=== PATIENT | female | born 1970 | race Caucasian/White ===

== ENCOUNTER 2017-04-20 11:54 | Emergency (ER) | payer MEDICARE ==
--- NOTE | ~2017-04-20 | ER ---
[facility] 47 Y [address] ROOM: [place] [address] LOCATION: [facility] ADMIT DATE: 04/20/2017 ER/Outpatient Report DISCHARGE DATE: 04/20/2017 FAMILY PHYSICIAN: PHYSICIAN, NO ATTENDING PHYSICIAN: Eduar Cabrera Time of Evaluation: 1205 hours. CHIEF COMPLAINT: Sinus congestion, sore throat. HISTORY OF PRESENT ILLNESS: The patient is a 47-year-old female, who says over the last 4 days, she has had sinus congestion and sore throat. She said she has been having some purulent postnasal drainage. She denies any fevers, chills, or cough. ALLERGIES: NO MEDICINAL ALLERGIES. HOME MEDICATIONS: Include just [id number] Mucinex. MEDICAL HISTORY: She has had some labile hypertension in the past, has been hospitalized with pneumonia, bronchitis. Denies asthma. SURGERIES: Include hysterectomy. SOCIAL HISTORY: Denies tobacco or alcohol use. REVIEW OF SYSTEMS: GENERAL: Denies fever or chills. HEENT: Includes nasal congestion, sore throat, postnasal drainage. NECK: Denied any neck or swollen cervical glands. RESPIRATORY: No cough or wheezing. SKIN: No recent rash. OBJECTIVE FINDINGS: VITAL SIGNS: Blood pressure initially was 170/101, temp 97, respiratory rate 20, pulse 86, O2 sats 99%. GENERAL APPEARANCE: Alert, did not appear to be in severe distress. HEENT: Ears: Both TMs intact. Normal landmarks. Nose: Nasal mucosa appeared non-swollen. There is no purulent discharge present. Throat: No PATIENT'S NAME: RENEE GOOD [facility] AGE: 47 Y [address] ROOM: [place] [address] LOCATION: [facility] ADMIT DATE: 04/20/2017 ER/Outpatient Report DISCHARGE DATE: 04/20/2017 FAMILY PHYSICIAN: PHYSICIAN, NO ATTENDING PHYSICIAN: Eduar Cabrera significant redness. No exudate. NECK: No cervical adenopathy or tenderness to palpation. LUNGS: Sound clear. HEART: No murmurs or gallop. ASSESSMENT: Sinusitis, pharyngitis. PLAN: Amoxil 500 t.i.d. for 10 days. Recommend saline nasal wash. Continue her Mucinex, throat lozenges [id number] as needed. Take antibiotic until gone. Follow up with primary care if it does not improve. SOHA HEDRICK FOR DO CHRISSY ADLER/shabnam /[id number] d: 04/20/171946 t: 04/25/17 1212, OUTPATIENT REPORT
== END 2017-04-20 12:15 | disposition disaster alternative care site (69) ==
LOC: GMED 11:54
DX: J32.9 Chronic sinusitis, unspecified (principal); J02.9 Acute pharyngitis, unspecified; Z79.899 Other long term (current) drug therapy; Z87.01 Personal history of pneumonia (recurrent); Z90.710 Acquired absence of both cervix and uterus

== ENCOUNTER 2017-05-31 04:53 | Emergency (ER) | payer MEDICARE ==
--- NOTE | ~2017-05-31 | ER ---
PATIENT'S NAME: RENEE GOOD [facility] AGE: 47 Y [address] ROOM: [place] [address] LOCATION: [facility] ADMIT DATE: 05/31/2017 ER/Outpatient Report DISCHARGE DATE: 05/31/2017 FAMILY PHYSICIAN: PHYSICIAN, NO ATTENDING PHYSICIAN: Jeannette Hernandez CHIEF COMPLAINT: Chest tightness. HISTORY OF PRESENT ILLNESS: I took hand-off on this patient from Dr. Hernandez at 0600 hours. The patient had just arrived, and her initial workup was initiated. The patient was describing some chest tightness with some wheezing, was given Ativan and some aspirin, and was feeling much better on my evaluation. In fact, she has no further symptoms. Her initial CK-MB was elevated at 5.8, and on repeat, it was downtrending. The troponin remains not elevated. The repeat EKG is unchanged with T-wave inversions, but no ST-segment changes. Given the timeframe, the downtrending enzymes, the lack of symptoms, and the only risk factor of family history, I think it is safe for discharge for this patient. I strongly encouraged her to establish care with one of the local clinics, and she was given business cards for same. All questions were answered, and the patient was discharged asymptomatic from the emergency department with improvement. MD LUNA LINO/shabnam /[id number] d: 05/31/17 1245 t: 06/10/17 0622, OUTPATIENT REPORT
--- NOTE | ~2017-05-31 | ER ---
PATIENT'S NAME: RENEE GOOD [facility] AGE: 47 Y [address] ROOM: [place] [address] LOCATION: [facility] ADMIT DATE: 05/31/2017 ER/Outpatient Report DISCHARGE DATE: FAMILY PHYSICIAN: PHYSICIAN, NO ATTENDING PHYSICIAN: Jeannette Hernandez HISTORY OF PRESENT ILLNESS: A 47-year-old female who presents today with chief complaint of "just not feeling right." She reports that she woke up at 4:30 a.m. on 05/31/2017 with sort of a chest tightness. She felt like she could not take a deep breath. She felt like it was catching in her chest. She denies any chest pain or chest pressure. It is not indigestion feeling. It is not burning. She has no pain. She has not had anything like this before. She denies any nausea, vomiting, diaphoresis, arm pain, or any other complaints at this time. PAST MEDICAL HISTORY: Includes being bipolar, anxiety and depression for which she takes no medications; hypertension for which she takes no medications. PAST SURGICAL HISTORY: Includes hysterectomy. SOCIAL HISTORY: In the past, she was a smoker, but denies any drugs or alcohol use. She says she has not smoked in 2 years. FAMILY HISTORY: Positive for heart disease in her mom and her grandma. ALLERGIES: NONE. MEDICATIONS: Recently was on cephalexin for her dry cough and laryngitis for the last 2 weeks, just finished it a couple of days ago. Otherwise, no other medications. REVIEW OF SYSTEMS: Reviewed by me and negative with the exception of those discussed in HPI. PHYSICAL EXAMINATION: VITAL SIGNS: Height is 5 feet 7 inches; weight is 96.8 kilos; blood pressure is 179/112; heart rate 90; respiratory rate 16; temperature is 96, tympanic; sats are 99% on room air. GENERAL: The patient appears mildly anxious. She walked into the ER. She PATIENT'S NAME: RENEE GOOD [facility] AGE: 47 Y [address] ROOM: [place] [address] LOCATION: [facility] ADMIT DATE: 05/31/2017 ER/Outpatient Report DISCHARGE DATE: FAMILY PHYSICIAN: PHYSICIAN, NO ATTENDING PHYSICIAN: Jeannette Hernandez does not appear toxic. She is not pale or diaphoretic. She says that she has a hard time explaining her symptoms. She "does not feel right." HEENT: Pupils are equal and reactive to light. Her heart rate is regular rate and rhythm. She is hypertensive at this time to 179/112. HEART: Her heart sounds are regular. She is not tachycardic. LUNGS: Her lung sounds are clear. She is saturating 99% on room air. Bilateral breath sounds are clear. She has no wheezing, rales, or rhonchi. Good air movement bilaterally. No chest wall tenderness. ABDOMEN: Soft, nontender, nondistended. No guarding or rebound. EXTREMITIES: She has no edema. NEURO: She has no pronator drift. Strength is bilateral upper extremities are 5/5. Lower extremities are 5/5. Cranial nerves 2 through 12 are intact. Intact sensation in bilateral upper and lower extremities. PSYCH: The patient has a normal affect, normal judgment. She does appear anxious and says that her mom does have breast cancer, and she has other things going on in her mind, but says that she has never had these symptoms before or taking anything for anxiety in the past. EMERGENCY ROOM COURSE: An EKG was done, it is sinus rhythm without any ectopy. She has some biphasic T-waves in the V5, V6, and some inverted T-waves in I and aVL, flattened T- waves in V3, V4, otherwise unremarkable. No ST elevations, no Q-waves. We also gave her Ativan 0.5 mg and 4 baby aspirins as well. Given her hypertension at this time, we will monitor that, but we will do a cardiac workup. We sent for CBC, CMP, and a troponin. We will await these results. This was signed out at change of shift to Dr. Mchugh. ASSESSMENT: Chest tightness. MD EDUARDO MODI/shabnam /[id number] d: 05/31/17 0615 t: 06/01/17 0406, OUTPATIENT REPORT
[2017-05-31 05:58] LABS: BASOPHIL # 0.1 K/uL (0.0-0.2); BASOPHIL % 1.2 %; EOSINOPHIL # 0.3 K/uL (0.0-0.5); EOSINOPHIL % 4.4 %; HEMATOCRIT 37.3 % (33.0-46.0); HEMOGLOBIN 12.3 g/dL (10.0-15.0); IMMATURE GRANULOCYTE % 0.3 %; LYMPHOCYTE # 2.9 K/uL (0.8-4.0); LYMPHOCYTE % 39.2 %; MCH 30.1 pg (27.0-34.0); MCV 91.4 fl (83.0-98.0); MONOCYTE # 0.6 K/uL (0.0-1.0); MONOCYTE % 7.8 %; MPV 9.9 fl (9.4-12.4); NEUTROPHIL # (ANC) 3.5 K/uL (1.8-7.8); NEUTROPHIL % 47.1 %; NRBC % 0 /100WBC (0-0.00); PLATELET COUNT 308 K/uL (150-450); RBC 4.08 M/uL (3.50-5.50); RDW-CV 13.8 % (11.9-14.6); WBC 7.4 K/uL (4.0-11.0)
[2017-05-31 06:22] LABS: ALBUMIN 3.5 gm/dL (3.5-5.0); ALK PHOS 89 IU/L (33-138); ALT 103 IU/L (12-78); ANION GAP 10.4 (10.0-19.0); AST 108 IU/L (10-40); BLOOD UREA NITROGEN 15 mg/dL (6-24); CALCIUM 8.5 mg/dL (8.5-10.5); CHLORIDE 109 mMol/L (96-110); CO2 25 mMol/L (22-32); CREATININE 0.8 mg/dL (0.5-1.1); POTASSIUM 3.4 mMol/L (3.7-5.1); SODIUM 141 mMol/L (135-145); TOTAL BILIRUBIN 0.3 mg/dL (0.0-1.5); TOTAL PROTEIN 7.2 g/dL (6.0-8.4)
[2017-05-31 08:23] LABS: CPK 189 IU/L (21-215)
== END 2017-05-31 08:51 | disposition disaster alternative care site (69) ==
LOC: GMED 04:53
PROVIDERS: Emergency Medicine
DX: R07.89 Other chest pain (principal); R06.2 Wheezing; I10 Essential (primary) hypertension; F41.9 Anxiety disorder, unspecified; F32.9 Major depressive disorder, single episode, unspecified; F31.9 Bipolar disorder, unspecified; Z90.710 Acquired absence of both cervix and uterus; Z87.891 Personal history of nicotine dependence; Z79.2 Long term (current) use of antibiotics

== ENCOUNTER 2017-06-06 00:44 | Emergency (ER) | payer MEDICARE ==
--- NOTE | ~2017-06-06 | ER ---
[facility] 47 [facility] [address] ROOM: [place] [address] LOCATION: [facility] ADMIT DATE: 06/06/2017 ER/Outpatient Report DISCHARGE DATE: 06/06/2017 FAMILY PHYSICIAN: PHYSICIAN, NO ATTENDING PHYSICIAN: Sin Oquendo Admission date and time documented in the medical record. I saw the patient at 0055 hours. CHIEF COMPLAINT: Difficulty breathing, chest tightness. HISTORY OF PRESENT ILLNESS: This patient is a 47-year-old female who has been having some problems with difficulty breathing off and on for the past 2 to 3 weeks. Tonight, she woke up from sleep gasping for air, feeling short of breath, and chest tightness. Dry nonproductive cough. No fever, chills, or sweats. No abdominal pain, nausea, vomiting, diarrhea. No urinary frequency, urgency, or dysuria. No fall or trauma. No recent fever, chills, sweats. No lightheadedness, dizziness, syncope, or near syncope. No headache; eyes, ears, nose, throat, neck, or spine pain. No skin eruptions or rash. No joint or muscle problems. Does have a history of anxiety and depression with bipolar disorder. No neuro changes or endocrine problems. HOME MEDICATIONS: See attached medication list. ALLERGIES: NONE. SOCIAL HISTORY: Nonsmoker, nondrinker. SIGNIFICANT PAST MEDICAL HISTORY: Bipolar disorder, anxiety, depression, hypertension, remote tobacco abuse, pneumonia. OPERATIONS: Hysterectomy. REVIEW OF SYSTEMS: All systems reviewed by me and are negative with the exception of those discussed in the history of present illness. PHYSICAL EXAMINATION: PATIENT'S NAME: RENEE GOOD [facility] AGE: 47 Y [address] ROOM: [place] [address] LOCATION: [facility] ADMIT DATE: 06/06/2017 ER/Outpatient Report DISCHARGE DATE: 06/06/2017 FAMILY PHYSICIAN: PHYSICIAN, NO ATTENDING PHYSICIAN: Sin Oquendo VITAL SIGNS: Temperature 95.9 tympanic, pulse 102, respirations 16, blood pressure 181/106, and O2 saturation on room air is 97%. HEAD: Normocephalic. EYES, EARS, NOSE, THROAT: Clear. Mucous membranes moist. NECK: Negative. LUNGS: Clear. Good air flow. No rales, rhonchi, or wheezes. HEART: Regular. Pulses are palpable. ABDOMEN: Soft. Some kind of generalized tenderness. No true guarding or rigidity. No rebound tenderness. Active bowel tones. No CVA tenderness. EXTREMITIES: Intact. NEUROVASCULAR: Intact. SKIN: Clear. LABORATORY DATA: CMS was normal except for a low calcium of 8.3, elevated AST of 104, ALT of 125. CPK was 175, CK-MB was 5.4. Troponin was less than 0.04. CRP was 0.42. White count was 8700; 55 segs, 34 lymphs, 6 monos, 4 eos, 1 baso. Hemoglobin is 12.6, hematocrit 38.2, platelet count is 304,000. ProTime was 10.8 with an INR 1.03. D-dimer was 0.66. IMAGING: Chest x-ray showed some questionable increased vascular congestion, cardiomegaly. No acute infiltrate. We will review x-ray with radiologist. Plain film, flat plate of the abdomen, and upright showed increased stool pattern. No other abnormalities. No obstruction. CT scan of the chest with PE protocol showed no evidence of pulmonary embolism. Did have some interstitial edema, mild cardiomegaly, enlarged body of the prostate, cholelithiasis. No free air or free fluid. CT scan was read by Radiology. See dictated and transcribed report. Radiology suggested MRI of the pancreas because of enlarged body of the pancreas. There also was a low-density lesion. IMPRESSION: 1. Interstitial pulmonary edema with some mild cardiomegaly. This could be the source of her difficulty breathing at times. No evidence of infiltrate, lung nodules. 2. Cholelithiasis. 3. Enlarged body of the pancreas with possible low-density lesion. MRI recommended. 4. Bipolar disorder. 5. Anxiety and depression. 6. Hypertension. 7. Remote tobacco abuse. PATIENT'S NAME: RENEE GOOD [facility] AGE: 47 Y [address] ROOM: [place], [place] [address] LOCATION: ED ADMIT DATE: 06/06/2017 ER/Outpatient Report DISCHARGE DATE: 06/06/2017 FAMILY PHYSICIAN: PHYSICIAN, NO ATTENDING PHYSICIAN: Sin Oquendo PLAN: The patient was discharged home with observation. Activity as tolerated. Continue present home medications and care. Fluids and diet as tolerated. Zaroxolyn 5 mg once a day for 5 days. We will schedule for an MRI scan of the pancreas. Follow up with personal physician in 5 to 7 days. MD KAROLINA GRANADOS/modl /[id number] d: 06/06/17 0349 t: 06/06/17 1810, OUTPATIENT REPORT
[2017-06-06 01:34] LABS: BASOPHIL # 0.1 K/uL (0.0-0.2); BASOPHIL % 1.1 %; EOSINOPHIL # 0.4 K/uL (0.0-0.5); HEMATOCRIT 38.2 % (33.0-46.0); HEMOGLOBIN 12.6 g/dL (10.0-15.0); IMMATURE GRANULOCYTE % 0.1 %; LYMPHOCYTE # 2.9 K/uL (0.8-4.0); LYMPHOCYTE % 33.6 %; MCH 30.4 pg (27.0-34.0); MONOCYTE # 0.6 K/uL (0.0-1.0); MONOCYTE % 6.4 %; NEUTROPHIL # (ANC) 4.8 K/uL (1.8-7.8); NEUTROPHIL % 54.8 %; NRBC % 0 /100WBC (0-0.00); PLATELET COUNT 304 K/uL (150-450); RBC 4.15 M/uL (3.50-5.50); RDW-CV 13.8 % (11.9-14.6); WBC 8.7 K/uL (4.0-11.0)
[2017-06-06 01:44] LABS: INR - (THERAPEUTIC) 1.03 (0.92-1.07); PROTIME 10.8 SECONDS (9.8-11.4)
[2017-06-06 01:53] LABS: ALBUMIN 3.5 gm/dL (3.5-5.0); ALK PHOS 103 IU/L (33-138); ALT 125 IU/L (12-78); ANION GAP 10.9 (10.0-19.0); AST 104 IU/L (10-40); BLOOD UREA NITROGEN 17 mg/dL (6-24); CALCIUM 8.3 mg/dL (8.5-10.5); CHLORIDE 108 mMol/L (96-110); CO2 24 mMol/L (22-32); CPK 175 IU/L (21-215); CREATININE 0.7 mg/dL (0.5-1.1); POTASSIUM 3.9 mMol/L (3.7-5.1); SODIUM 139 mMol/L (135-145); TOTAL BILIRUBIN 0.3 mg/dL (0.0-1.5); TOTAL PROTEIN 7.3 g/dL (6.0-8.4)
== END 2017-06-06 03:11 | disposition disaster alternative care site (69) ==
LOC: GMED 00:44
PROVIDERS: Emergency Medicine
DX: J81.1 Chronic pulmonary edema (principal); K80.20 Calculus of gallbladder without cholecystitis without obstruction; F31.9 Bipolar disorder, unspecified; F41.9 Anxiety disorder, unspecified; F32.9 Major depressive disorder, single episode, unspecified; I10 Essential (primary) hypertension; K86.89 Other specified diseases of pancreas
CPT/HCPCS: J7030; Q9967

== ENCOUNTER → 2017-06-13 | Outpatient (CLI) | payer MEDICARE ==
[~2017-06-13] MED LIST: ALDACTONE25 MG PO; COREG6.25 MG PO; ENTRESTO 24 MG1 EACH PO; K-TAB ER20 MEQ PO; LASIX20 MG PO; LISINOPRIL-HCT1 EACH PO
== END | disposition disaster alternative care site (69) ==
LOC: GRAD 06-06 08:37
DX: K86.89 Other specified diseases of pancreas (principal); K86.2 Cyst of pancreas

== ENCOUNTER 2017-06-19 12:00 | Inpatient (IN) | payer MEDICARE ==
[~2017-06-19] VITALS: Ht 152.4 cm; Wt 94.2 kg
--- NOTE | ~2017-06-19 | HP ---
PATIENT'S NAME: RENEE HURT [facility] AGE: 47 Y [address] ROOM: [facility] [place] [address] LOCATION: [facility] ADMIT DATE: 06/19/2017 History & Physical DISCHARGE DATE: FAMILY PHYSICIAN: Syeda Miller PA-C ATTENDING PHYSICIAN: Tc De La Cruz DATE OF SERVICE: CHIEF COMPLAINT: Congestive heart failure. HISTORY OF PRESENT ILLNESS: Kim Hurt is a 47-year-old female, who is a relatively new patient to our clinic. Her first and only clinic visit was on June 11. She had 3 relatively recent visits to the ER; the initial one was actually on April 25, 2017, when she presented with sinus congestion and a sore throat, was diagnosed with sinusitis and pharyngitis, and was treated with amoxicillin 500 t.i.d. for 10 days. They recommended saline nasal rinses and Mucinex and sore throat lozenges. She was then seen on June 01, 2017, of just not feeling right. She kind of had difficulty where she would just kind of have catching her breath. She said she just had difficulty taking a deep breath; it really was not so much that she was short of breath, but it worried her. She was evaluated by Dr. Jeannette Hernandez. Her EKG was normal. She was given some Ativan and they thought that it was just more of an anxiety-type syndrome. Dr. Mchugh actually took over. There were some slightly elevated enzymes, but they trended down on 2 checks, and her symptoms seemed to be better and all she had was this difficulty catching her breath, so she was actually dismissed. Her final ER visit was on the where she was seen by Dr. Oquendo with the same symptoms. He went ahead and did more of a workup at that time including a CMS that showed a low calcium of 8.3, elevated AST of 104 and ALT of 125, CPK was 175, CK-MB was 5.4, and troponin was less than 0.04. CRP was 0.42. CBC was normal. Hemoglobin normal. D-dimer borderline. She had a CT PE protocol, which showed no evidence of pulmonary embolism, but did show interstitial edema, mild cardiomegaly and large body of the pancreas, and cholelithiasis. He started the patient on some Zaroxolyn to diurese her and recommended followup with her personal physician in 5 to 7 days. She then came and saw Syeda Miller, one of our PAs at the [facility]. She reviewed all the data and got the patient scheduled for the MRI of her pancreas. This was done and did show an ill-defined mid-pancreatic mass measuring 35 x 55 mm with some central cystic changes. Differential diagnosis includes mucinous cystic carcinoma versus neuroendocrine tumor versus unusual ductal adenocarcinoma versus serous carcinoma. A biopsy of course is recommended. She actually set the patient up for an evaluation at [facility] for biopsy of this mass and further evaluation. Because of the cardiomegaly and the congestion, she set the patient up for an echocardiogram, which was read PATIENT'S NAME: RENEE HURT [facility] AGE: 47 Y [address] ROOM: [id number] [place] [id number] [facility] ADMIT DATE: 06/19/2017 History & Physical DISCHARGE DATE: FAMILY PHYSICIAN: Syeda MillerC ATTENDING PHYSICIAN: Tc De La Cruz today by Dr. Eugene. It showed the patient to have a significant dilated cardiomyopathy with EF of 25% to 30%, left ventricle was moderately dilated, mild concentric LVH, mild mitral regurg, mild thickening of the mitral valve leaflets, grade 2 pseudonormal diastolic dysfunction, no evidence of pleural effusion. Dr. Eugene thought it best to admit the patient and obviously with the workup, it is to hopefully rule out an ischemic cardiomyopathy. There is a good chance with everything that is going on that this might be just more of a viral cardiomyopathy. He asked us to consult for medical management, and he is going to take care of the cardiology aspects. PAST MEDICAL HISTORY: ALLERGIES: IODINE DYE AND SEASONAL ALLERGIES. PREVIOUS SURGERIES: Just the history of a hysterectomy, which was due to bleeding issues. CHRONIC HEALTH PROBLEMS: She does have a history of hypertension. FAMILY HISTORY: There is a maternal grandmother with cardiovascular disease, diabetes in a maternal grandmother. Mom has a recent diagnosis of breast cancer and is undergoing treatment. Dad has a history of prostate cancer, and the maternal grandmother had hypertensive heart disease also. SOCIAL HISTORY: The patient works for the [employer] since October of 2016. She is a nonsmoker, nondrinker, and denies drug use. REVIEW OF SYSTEMS: GENERAL: She denies any problems with weight loss. HEENT: Negative. LUNGS: Negative other than this catching her breath, she still does not complain of shortness of breath. CHEST: No pains, pressure, or tightness. GI: No nauseousness, vomiting, loose stools, bowel changes, abdominal pain, etc. : Negative. INTEGUMENT: Negative. MUSCULOSKELETAL: Negative other than swelling of her lower extremities. PSYCHIATRIC: She does have a remote history of bipolar disorder, but is off medications for quite some time and states she is really doing well. PATIENT'S NAME: RENEE HURT [facility] AGE: 47 Y [address] ROOM: [address] [address] [facility] ADMIT DATE: 06/19/2017 History & Physical DISCHARGE DATE: FAMILY PHYSICIAN: Syeda Miller PA-C ATTENDING PHYSICIAN: Tc De La Cruz CURRENT MEDICATIONS: Include, 1. Lisinopril, HCTZ along with aspirin. 2. She had some Ativan for anxiety as needed. PHYSICAL EXAMINATION: GENERAL: Shows an alert female, who is resting comfortably in bed. I did wake her up to visit her. HEENT: Normal. NECK: Supple. No adenopathy. LUNGS: Clear. HEART: Regular rate and rhythm. ABDOMEN: Benign. No tenderness. EXTREMITIES: Just show trace to 1+ edema. LABORATORY DATA: CPK is 117, troponin I is less than 0.040, and proBNP is 2212. White count is 6.2, hemoglobin 14.6, hematocrit 44.5, platelet count is 291. Glucose 93, BUN 10, creatinine 0.8, sodium 141, potassium 4, chloride 105, CO2 of 31, calcium 9.2, total protein 7.8, albumin 3.6, ALT is 29, AST 31, alkaline phosphatase 84, total bilirubin 0.3, anion gap 9, globulin 4.2, pro-time 10.6, INR 1.01, PTT of 30, eGFR is 87, CK-MB 29, TSH is 1.550. Differential showed 53% neutrophils, 35.2% lymphocytes. ASSESSMENT: 1. Dilated cardiomyopathy with acute systolic heart failure and diastolic dysfunction with an ejection fraction of 25% to 30% percent. 2. Hypertension. 3. Pancreatic mass. 4. Status post hysterectomy. 5. Remote history of bipolar affective disorder. 6. Cholelithiasis noted on MRI. 7. History of hypokalemia, resolved. PLAN: Dr. Eugene has admitted the patient and is planning on doing a cath tomorrow probably to rule out an ischemic cardiomyopathy versus nonischemic. He has discontinued her lisinopril, placed her on Coreg, Aldactone, and Entresto, which I agree with all of that. He also started her on Lovenox. We are going to monitor her lab work. Plan on a cath tomorrow. She has an upcoming appointment with [facility]. We will have to see if we have to reschedule that depending on her workup. I will continue to follow along. PATIENT'S NAME: RENEE HURT [facility] AGE: 47 Y [address] ROOM: [place] [address] [facility] ADMIT DATE: 06/19/2017 History & Physical DISCHARGE DATE: FAMILY PHYSICIAN: Syeda Miller PA-C ATTENDING PHYSICIAN: Tc De La Cruz MD VIJAY MARTINEZ/shabnam /[id number] D: T: HISTORY & PHYSICAL
--- NOTE | ~2017-06-19 | CATH ---
Cardiac Diagnostic Report Demographics Patient Name FLORENTINO Valle Gender Female Date of 1970 Age 47 year(s) Patient Number [id number] Date of Study 06/20/2017 Visit Number [id number] Room Number G6339 [place] [id number] Ht 171.4 cm Wt 93 kg Referring Dorothy Lee Primary Physician Physician Performing Efstratiou Secondary Physician Physician Chaya Lee MD Diagnostic Efstratiou Assisting Physician Physician Chaya Lee MD Interventional Physician Transformer Assembly Supervisor Physician Findings and Conclusions Diagnostic Findings and Conclusion normal coronaries non ischemic cardiomyopathy with EF 20-25% mildly elevated LVEDP normal wedge pressure Diagnostic Recommendations medical therapy Life vest Procedure Description The patient was brought to the diagnostic cardiac catheterization-EP laboratory in the fasting, non-sedated state. Informed consent was obtained in the written and verbal form after the risks and benefits were explained. The patient had no further questions and agreed to proceed. The planned puncture-incision site(s) were shaved and prepped with ChloraPrep and draped in the usual sterile manner. Conscious sedation, supplemental oxygen, and pain control medications were delivered by a registered nurse under physician guidance. Surface ECG rhythm, blood pressure measurement, and pulse oximetry were monitored throughout the procedure. Arterial access. The access site was infiltrated with lidocaine. The vessel was entered with the Seldinger technique. A sheath was advanced into the vessel and used for catheter placement. Venous access. The access site was infiltrated with lidocaine. The vessel was entered with the Seldinger technique. A sheath was advanced into the vessel and used for catheter placement. Selective left coronary angiography. A catheter was advanced into the left coronary vessel ostium under Fluoroscopic guidance. Contrast was injected by hand. Images were obtained in multiple projections. Selective right coronary angiography. A catheter was advanced into the right coronary vessel ostium under fluoroscopic guidance. Contrast was injected by hand. Images were obtained in multiple projections. Left heart catheterization with ventriculography. A catheter was advanced across the aortic valve to the left ventricle under fluoroscopic guidance. Resting hemodynamics were obtained. With the catheter at the left ventricular apex, contrast was injected. Images were obtained in HANSON projections. Post-ventriculography LV pressure was obtained. The catheter was gradually withdrawn into the aorta with continuous pressure recording. Right heart catheterization. A Calumet Suzanne catheter was successfully advanced to the right atrium, right ventricle, pulmonary artery, and pulmonary artery wedge position under fluoroscopic guidance. Resting hemodynamics were obtained. Measurements included pressures, arterial and venous oxygen saturation samples, and cardiac output. The Calumet was removed without difficulty. Arterial artery hemostasis was achieved. The patient was transferred to a regular nursing floor via cart accompanied by a nurse. The patient left the laboratory in stable condition. Diagnostic Cath Status: Urgent Procedure Procedure Type Diagnostic procedure:Ventriculogram:, Left, Angiography:, Right and Left Heart Cath, Coronary Angios Indications: CHF. The procedure was explained in detail to the patient. Risks, complications and alternative treatments were reviewed. Written consent was obtained. Medications Reviewed with Patient prior to Procedure. Angiographic Findings Dominance: Right Cardiac Arteries and Lesion Findings LMCA: Normal (0% Stenosis). LAD: Normal (0% Stenosis). LCx: Normal (0% Stenosis). RCA: Normal (0% Stenosis). Procedure Data Procedure Date Date: 06/20/2017Start: 09:16 AMEnd: 09:55 AM Entry Locations - Retrograde Percutaneous access was performed through the Right Radial artery (Primary location). A 6 Fr sheath was inserted. Hemostasis was successfully obtained using Mechanical Compression. Closure Comments: r band with 15 cc air by Kyaw. - Antegrade Percutaneous access was performed through the Right Brachial vein. A 6 Fr sheath was inserted. Hemostasis was successfully obtained using Manual Compression. Closure Comments: pressure held by Kyaw. Procedure Medications Order and Administration + + +-------+-------+ !Time !Medication !Dosage !Route ! + + +-------+-------+ !06/20/2017 !PAE Radial Cocktail: Heparin 5000 units, ! !I.A. ! !09:20 AM !Nitroglycerin 200mcg, Verapamil 3 mg ! ! ! ! !(ACC_3) ! ! ! + + +-------+-------+ !06/20/2017 !Fentanyl !25 mcg !I.V. ! !09:14 AM ! ! ! ! + + +-------+-------+ Devices Used - A6 Fr. Balloon Wedge Catheterwas used for:Right heart cath. - A6 Fr. BS JR 4 Diag. Catheterwas used for:Right coronary angiography. - A6 Fr. BS JL 3.5 Diag. Catheterwas used for:Left coronary angiography. - A6 Fr. BS Angled Pigtail Diag. Catheterwas used for:Left ventriculography. Contrast Material - Isovue 08539 ml Fluoroscopy Time: Diagnostic: 6:48 minutes. Total: 6:48 minutes. Fluoroscopy Dose: Diagnostic: 795 mGy. Total: 795 mGy. Estimated Blood Loss: 10 ml. Medical History Allergies - Iodine. Risk Factors The patient risk factors include:obesity, family history of premature CAD, last creatinine: 0.8 mg/dl and creatinine clearance: 124.89 ml/min. Admission Data Admission Date: 06/19/2017 Admission Time: 04:26 PM Admit Source: Other Insurance Payors: Medicare. Admission Medications + +------+------+ + + + + !Medication !Dosage!Times !Last !Last !Administered !Comments ! ! ! !Per !Delivery !Delivery ! ! ! ! ! !Day !Date !Time ! ! ! + +------+------+ + + + + !Beta ! ! ! ! ! ! ! !Valeria ! ! ! ! ! ! ! !(any) ! ! ! ! ! ! ! + +------+------+ + + + + Clinical Evaluation Leading to Procedure - There were no CAD presentation symptoms. - There were no anginal symptoms. Anti-anginal medications were prescribed during the past two weeks. The medication is: Beta Blockers. - The patient has been in a state of heart failure within the past two weeks. - The patient's heart failure status was assessed as NYHA Class IV, with CHF symptoms of PERES. - The reason for the patient's electrical laboratory technician visit is evaluation of cardiomyopathy and/or evaluation of left ventricular systolic dysfunction. [facility] Ventriculography Findings non ischemic cardiomyopathy ef 20-25% mildly elevated LVEDP LV function assessed as:Abnormal. Ejection Fraction - Method: Echocardiography. EF%: 25. - 06/20/2017 - Method: LV gram. EF%: 20. Snapshots Hemodynamics Condition: Rest O2 Consumption: Estimated: 197.11Heart Rate: 64 bpm Oxygen Saturation +--------+-----+----+ +----+ + !Location!pCO2 !pO2 !% Saturation !Hgb !O2 Content ! +--------+-----+----+ +----+ + !FA ! ! !90.1 !14.9! ! +--------+-----+----+ +----+ + !PA ! ! !66.3 !14.9! ! +--------+-----+----+ +----+ + !RA ! ! !69.2 !14.9! ! +--------+-----+----+ +----+ + Pressures (mmHg) +-----+ + !Site !Pressure ! +-----+ + !RA !4/1 (1) ! +-----+ + !RV !34/-5 ,0 ! +-----+ + !PCW !10/9 (5) ! +-----+ + !PA !35/0 (20) ! +-----+ + !AO !139/88 (110) ! +-----+ + !LV !147/4 ,14 ! +-----+ + !LV !145/3 ,16 ! +-----+ + !LV !146/7 ,18 ! +-----+ + !LV !148/7 ,21 ! +-----+ + !AO !151/87 (113) ! +-----+ + !LV !146/7 ,20 ! +-----+ + Cardiac Output +------+ + + + !Method!CO (l/min) !CI (l/min/m2) !SV (ml) ! +------+ + + + !Angelita !4.09 !2 !63.44 ! +------+ + + + Valve Gradients and Areas + +--------+--------+--------+---------+ + + !Valve !Peak !Mean !Area !Index !Flow !Source ! + +--------+--------+--------+---------+ + + !Aortic !0 !0 ! ! !763.06 !Angelita ! + +--------+--------+--------+---------+ + + !Aortic !0 !0 ! ! ! ! ! + +--------+--------+--------+---------+ + + Shunts Oxygen Values O2 Capacity 202.64 O2 Consumption 197.11 Flows (l/min) Qs 4.65 Vascular Resistance (dynes x sec x cm-5) + +-----+-----+----+----+---------+-------+ !CO method !TSVR !SVR !TPVR!PVR !TPVR/TSVR!PVR/SVR! + +-----+-----+----+----+---------+-------+ !Angelita !27.53!27.36!4.78!3.51!0.17 !0.13 ! + +-----+-----+----+----+---------+-------+ !Qp or Qs !24.21!24.07! ! ! ! ! + +-----+-----+----+----+---------+-------+ Signatures dtt: Axel Frey dtd: 06/20/17 0916 Physician Self Edit
--- NOTE | ~2017-06-19 | CON ---
PATIENT'S NAME: RENEE GOOD [facility] AGE: 47 Y [address] ROOM: G6339 [place], [place] [address] LOCATION: GPCU ADMIT DATE: 06/19/2017 Consultation DISCHARGE DATE: FAMILY PHYSICIAN: Syeda Miller PA-C ATTENDING PHYSICIAN: Tc De La Cruz HISTORY OF PRESENT ILLNESS: This is a 47-year-old woman who was sent today to the noninvasive Cardiology for an echocardiogram. It was grossly abnormal and nursing coordinator asked me to see the patient as I was the ballet dancer personal lines advisor. The echocardiogram shows dilated cardiomyopathy with ejection fraction 25-30%. No major valvular abnormalities. No regional wall motion abnormalities. Normal right ventricle. History I obtained from the patient is for the past two months or so, she had some problems breathing. She has been in our emergency room three times. The on April 20, she gave a history of congestion and purulent discharge on her throat, so the evaluation was unrevealing and she was sent home on amoxicillin for 10 days. She then presented on 05/31 complaining of waking up gasping for air. She had cardiac enzymes drawn, then released. On June 06, she presented again complaining of waking up with difficulty breathing. Cardiac enzymes, troponin was negative. The D-dimer was mildly elevated. She underwent CT angiogram of the chest with PE protocol. It showed that she had some lung congestion and cardiomegaly. No pulmonary embolus. The pancreas was enlarged, so MR of the pancreas was recommended. She was placed on Zaroxolyn. She was advised to establish a followup with one of the primary care practices [facility]. The MR was done June 13. It showed an ill-defined mass in the body of the pancreas 35 x 55 mm and the differential diagnosis is all different type of pancreatic malignancies. The patient has a followup appointment at [facility] tomorrow. PAST MEDICAL HISTORY: Borderline hypertension, but only recently she was placed on lisinopril hydrochlorothiazide. She has history of anxiety and depression but has never been hospitalized for such and denies any suicidal ideation or acts. She has been hospitalized in the past for pneumonia. PAST SURGICAL HISTORY: Hysterectomy because of menorrhagias. SOCIAL HISTORY: The patient is single. Does not have children. Works for the [employer]. Currently, does not use tobacco or alcohol. There is a remote history of smoking. 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 FAMILY HISTORY: PATIENT'S NAME: RENEE GOOD [facility] AGE: 47 Y [address] ROOM: [place] [address] LOCATION: GPCU ADMIT DATE: 06/19/2017 Consultation DISCHARGE DATE: FAMILY PHYSICIAN: Syeda Miller PA-C ATTENDING PHYSICIAN: Tc De La Cruz Father from metastatic prostate cancer. Her mother is alive. She was recently diagnosed with breast cancer. REVIEW OF SYSTEMS: She gets short of breath when she goes up and down stairs. There is no history of chest pain. No history of syncope. She has had some lower extremity edema over the last few weeks. No weight loss or gain. No hemoptysis. Remaining systems were checked and negative. PHYSICAL EXAMINATION: VITAL SIGNS: She is a pleasant middle-aged woman. She is 5 feet 7-1/2 inches, weight 93 kg, blood pressure 159/95, pulse 87, respirations 18, temperature 97.9. GENERAL: She is alert and oriented. SKIN: Warm and dry. HEAD: Normocephalic, atraumatic. No jaundice. There is mild to moderate jugular venous distention. No carotid bruits. LUNGS: Clear. HEART: Has a borderline S4 gallop. No significant murmur. ABDOMEN: Moderately obese, soft, nontender. EXTREMITIES: Lower extremities, mild peripheral edema. LABORATORY DATA: The electrocardiogram is pending. On one of the descriptions in the emergency room encounters, there were some precordial biphasic T-waves. PLAN: The patient will be admitted. She will need medical therapy, and since she is a fairly young woman, I will use Entresto for the renin-angiotensin system. She took her lisinopril today, so we will wait 36 hours to start that. In the meantime, we will start on carvedilol and Aldactone since she has been hypokalemic. I will plan a right and left heart catheterization in a.m., revascularization as indicated. The patient will be discharged on a LifeVest and she will be monitored closely in the outpatient. Thank you for allowing [facility] to assist in the care of your patient. BHAVANI BOGGS MD PE/shabnam PATIENT'S NAME: RENEE GOOD [facility] AGE: 47 Y [address] ROOM: [address] [address] [facility] ADMIT DATE: 06/19/2017 Consultation DISCHARGE DATE: FAMILY PHYSICIAN: Syeda Miller PA-C ATTENDING PHYSICIAN: Tc De La Cruz /[id number] d: 06/19/172256 t: 06/20/17906, CONSULTATION REPORT
--- NOTE | ~2017-06-19 | CON ---
PATIENT'S NAME: RENEE GOOD [facility] AGE: 47 Y [address] ROOM: [address] [place], [place] [address] LOCATION: GPCU ADMIT DATE: 06/19/2017 Consultation DISCHARGE DATE: FAMILY PHYSICIAN: Syeda Miller PA-C ATTENDING PHYSICIAN: Tc De La Cruz DATE OF CONSULTATION: 06/20/2017 REFERRING PHYSICIAN: Tc De La Cruz MD REASON FOR CONSULTATION: Pancreatic mass. HISTORY OF PRESENT ILLNESS: This is a very pleasant 47-year-old female who recently had been seen in the ER over the past month with 3 sequential visits. The patient states that she has been having difficulty taking a deep breath, though denies any shortness of breath. She was evaluated in the emergency room, subsequently undergoing a chest CT with PE protocol for a slightly elevated D-dimer. Incidentally, the patient was found to have a pancreatic mass. She did then undergo MRI on June 13, 2017. An ill-defined mid pancreatic mass measuring 35 x 55 mm with some central cystic changes was seen. The patient ultimately also underwent an echo on 06/19/2017 as an outpatient. The echo appeared to be significantly abnormal, showing dilated cardiomyopathy with ejection fraction of 25% to 30%, no valvular abnormalities, normal right ventricle, as well as no regional wall motion abnormalities. The patient was then admitted for continued workup. She did undergo left and right heart catheterization this morning that she states as there were no "occlusions," though final report is pending at this time. We were asked to see in consultation for the patient's newly diagnosed pancreatic mass. The patient was seen and examined. She denies any specific symptoms except for inability to take a deep breath. She does have known constipation, which is her "normal." Denies any colt abdominal pain, fever, or chills. She does state that her weight has been stable. Also, denies any family history of pancreatic issues. She did have an upcoming appointment scheduled with [facility] regarding her pancreatic mass evaluation, though this has not been completed at this time. The patient currently denies any acute chest pain, chest pressure, shortness of breath, fever, chills, or night sweats. She does state that her appetite has been slightly diminished over the past 3 weeks as well. PAST MEDICAL HISTORY: Newly diagnosed pancreatic mass, borderline hypertension, history of anxiety and depression, and history of pneumonia. PATIENT'S NAME: RENEE GOOD [facility] AGE: 47 Y [address] ROOM: [address] [place], [place] [address] [facility] ADMIT DATE: 06/19/2017 Consultation DISCHARGE DATE: FAMILY PHYSICIAN: Syeda Miller PA-C ATTENDING PHYSICIAN: Tc De La Cruz PAST SURGICAL HISTORY: Hysterectomy secondary to menorrhagia. Denies any history of upper endoscopy or colonoscopy. Right and left heart catheterization completed today. SOCIAL HISTORY: The patient is single. She does not have any children. She works at the [employer]. Denies any current tobacco or alcohol use. She has a remote history of smoking. She also has a history of methamphetamine use, though states that she has been clean for 2 years except for 2 brief relapses. FAMILY HISTORY: The patient denies any known gastrointestinal diseases or pancreatic diseases. The patient's father did have metastatic prostate cancer. There is also a significant family history of generalized cancers, specifically, lung cancer and ovarian cancer in her aunts and uncles. The patient's mother also had breast cancer. ALLERGIES: NO KNOWN MEDICATION ALLERGIES. CURRENT MEDICATIONS: Please refer to the medication administration record. REVIEW OF SYSTEMS: An all-point review of systems was completed, all were negative except for those identified in the History of Present Illness. PHYSICAL EXAMINATION: GENERAL: A very pleasant 47-year-old female, lying in bed, who appears to be in no acute distress. VITAL SIGNS: Temperature 98.0, pulse is 78, respirations of 14, blood pressure 141/79, and oxygen saturation is 98% on room air. SKIN: Wagner, warm, and dry. No jaundice. HEENT: Head is normocephalic and atraumatic. Pupils are equal, round, and reactive to light. Sclerae are clear, nonicteric. Oral mucosa is pink and moist. No thyromegaly. NECK: Soft and supple. CARDIOVASCULAR: Regular. Normal S1 and S2. RESPIRATORY: Respirations even and unlabored. Lungs are clear to auscultation. ABDOMEN: Soft, round, nontender, and nondistended. Bowel sounds are positive. MUSCULOSKELETAL: No muscle weakness or atrophy. EXTREMITIES: No edema. NEUROLOGIC: Grossly nonfocal. PATIENT'S NAME: RENEE GOOD [facility] AGE: 47 Y [address] ROOM: [facility] [place] [address] [facility] ADMIT DATE: 06/19/2017 Consultation DISCHARGE DATE: FAMILY PHYSICIAN: Syeda Miller PA-C ATTENDING PHYSICIAN: Tc De La Cruz LABORATORY AND DIAGNOSTIC DATA: White blood cell count of 5.6, hemoglobin of 14.9, hematocrit of 45.5, and platelets of 295. Chemistry panel includes a glucose of 98, BUN of 12, creatinine 0.8, sodium 141, potassium of 4.2, chloride of 106, and CO2 of 29. Liver function tests are within normal limits. MRI as above. ASSESSMENT AND PLAN: Again, this is a very pleasant 47-year-old female who was admitted for heart catheterization after being found to have dilated cardiomyopathy. The patient incidentally also was noted to have a pancreatic mass. In review of the MRI report, it appears differentials do include mucinous cystic carcinoma versus neuroendocrine tumor versus ductal adenocarcinoma and serous carcinoma. The patient does have an appointment with [facility] in the upcoming future regarding this. At this time, we will go forth with reviewing the MRI with the radiologist for further recommendations. Patient most likely will need evaluation to be completed with endoscopic ultrasound with pancreatic biopsy in [place]. Cardiology is onboard regarding the cardiomyopathy, as well as the patient is status post heart catheterization as well. Further recommendations to be given after review of MRI. Thank you for this consult. VAL DELRAOSA APRN FOR MD JOY WAHL/shabnam /[id number] d: 06/20/170 t: 06/23/17 1756, CONSULTATION REPORT
[2017-06-19] MEDS ORDERED: K-TAB ER20 MEQ PO (17:23)
[2017-06-19] MEDS ORDERED: LISINOPRIL-HCT1 EACH PO (17:25)
[2017-06-19 19:55] LABS: BASOPHIL # 0.1 K/uL (0.0-0.2); BASOPHIL % 1.1 %; EOSINOPHIL # 0.3 K/uL (0.0-0.5); EOSINOPHIL % 4.2 %; HEMATOCRIT 44.5 % (33.0-46.0); HEMOGLOBIN 14.6 g/dL (10.0-15.0); IMMATURE GRANULOCYTE % 0.2 %; LYMPHOCYTE # 2.2 K/uL (0.8-4.0); LYMPHOCYTE % 35.2 %; MCH 30.2 pg (27.0-34.0); MCHC 32.8 gm/dL (32.0-36.5); MCV 91.9 fl (83.0-98.0); MONOCYTE # 0.4 K/uL (0.0-1.0); MONOCYTE % 6.3 %; MPV 10.6 fl (9.4-12.4); NEUTROPHIL # (ANC) 3.3 K/uL (1.8-7.8); NRBC % 0 /100WBC (0-0.00); PLATELET COUNT 291 K/uL (150-450); RBC 4.84 M/uL (3.50-5.50); WBC 6.2 K/uL (4.0-11.0)
[2017-06-19 20:13] LABS: INR - (THERAPEUTIC) 1.01 (0.92-1.07); PROTIME 10.6 SECONDS (9.8-11.4); PTT 30 SECONDS (25-32)
[2017-06-19 20:17] LABS: ALBUMIN 3.6 gm/dL (3.5-5.0); CALCIUM 9.2 mg/dL (8.5-10.5); CREATININE 0.8 mg/dL (0.5-1.1); TOTAL BILIRUBIN 0.3 mg/dL (0.0-1.5); TOTAL PROTEIN 7.8 g/dL (6.0-8.4)
[2017-06-19 20:23] LABS: CPK 117 IU/L (21-215)
[2017-06-20 00:55] LABS: CPK 97 IU/L (21-215)
[2017-06-20 06:26] LABS: BASOPHIL # 0.1 K/uL (0.0-0.2); BASOPHIL % 1.1 %; EOSINOPHIL # 0.3 K/uL (0.0-0.5); HEMATOCRIT 45.5 % (33.0-46.0); HEMOGLOBIN 14.9 g/dL (10.0-15.0); IMMATURE GRANULOCYTE % 0.2 %; LYMPHOCYTE # 2.3 K/uL (0.8-4.0); LYMPHOCYTE % 40.6 %; MCH 29.9 pg (27.0-34.0); MCHC 32.7 gm/dL (32.0-36.5); MCV 91.4 fl (83.0-98.0); MONOCYTE # 0.4 K/uL (0.0-1.0); MONOCYTE % 6.8 %; MPV 10.3 fl (9.4-12.4); NEUTROPHIL # (ANC) 2.6 K/uL (1.8-7.8); NEUTROPHIL % 46.3 %; NRBC % 0 /100WBC (0-0.00); PLATELET COUNT 295 K/uL (150-450); RBC 4.98 M/uL (3.50-5.50); RDW-CV 13.1 % (11.9-14.6); WBC 5.6 K/uL (4.0-11.0)
[2017-06-20 06:42] LABS: CPK 86 IU/L (21-215)
[2017-06-20 06:55] LABS: ANION GAP 10.2 (10.0-19.0); CREATININE 0.8 mg/dL (0.5-1.1); POTASSIUM 4.2 mMol/L (3.7-5.1)
[2017-06-21] MEDS ORDERED: COREG6.25 MG PO (13:03)
[2017-06-21] MEDS ORDERED: ENTRESTO 24 MG1 EACH PO (13:04)
[2017-06-21] MEDS ORDERED: LASIX20 MG PO (13:04)
[2017-06-21] MEDS ORDERED: ALDACTONE25 MG PO (13:05)
== END 2017-06-21 16:30 | disposition disaster alternative care site (69) | DRG 286 ==
LOC: GPCU 16:26
PROVIDERS: Internal Medicine Cardiovascular Disease; ADMIT Obstetrics & Gynecology Obstetrics
PROC: 4A023N8 Measurement of Cardiac Sampling and Pressure, Bilateral, Percutaneous Approach (ICD-10-PCS; principal; 2017-06-20)
PROC: B216YZZ Fluoroscopy of Right and Left Heart using Other Contrast (ICD-10-PCS; principal; 2017-06-20)
DX: I42.0 Dilated cardiomyopathy (principal); I50.21 Acute systolic (congestive) heart failure; F31.89 Other bipolar disorder; E87.6 Hypokalemia; K80.20 Calculus of gallbladder without cholecystitis without obstruction; I11.0 Hypertensive heart disease with heart failure; Z88.8 Allergy status to other drugs, medicaments and biological substances; E66.9 Obesity, unspecified; Z68.31 Body mass index [BMI] 31.0-31.9, adult; K86.9 Disease of pancreas, unspecified
CPT/HCPCS: C1894; J1200; J1644; J1650; J2920; J3010; J7030

== ENCOUNTER → 2017-06-19 | Outpatient (CLI) | payer MEDICARE ==
--- NOTE | ~2017-06-19 | ECHO ---
Transthoracic Echocardiography Report (TTE) Demographics Patient Name RENEE GOOD Date of Study 06/19/2017 Patient Number [id number] Visit Number [id number] Date of 1970 Room Number Accession Number [id number] Gender Female Age 47 year(s) Referring Syeda Miller Loin Puller Kenan Agee RVT, Physician CONCHA Physician Interpreting Tk Larkin Cardiac Cath Technologist Physician A Supervising Ordering Physician Syeda Miller MD/MLP Nurse Stress Press Shop Supervisor Conclusions Contractility Score Summary Summary Preliminary result given to Dr. Frey and the patient was assessed by Dr. Frey. The estimated left ventricular ejection fraction is 25-30%. The left ventricle is moderately dilated . Mild concentric left ventricular hypertrophy. Mild thickening of the mitral valve leaflets. Mild mitral regurgitation. Procedure Type of Study TTE procedure:2D Echocardiogram. Procedure Date Date: 06/19/2017 Start: 10:06 AM Study Location: Echo Lab Technical Quality: Adequate visualization Indications:Shortness of breath. Appropriate Use Criteria: 8 Patient Status: Routine Rhythm: NSR HR: 84 bpm BP: 145/87 mmHg M-Mode/2D Measurements LV Diastolic Dimension: 6.27 cm LV Systolic Dimension: 5.25 cm LV Septum Diastolic: 1.17 cm LV PW Diastolic: 1.02 cm AO Root Dimension: 2.6 cm Cardiac Output: 3.4 l/min AV Cusp Separation: 2.3 cm RV Diastolic Dimension: 2.93 cm LA volume: 71 ml LVOT: 2.1 cm RV Base: 3.27 cm LVOT VTI: 11.7 cm RV Mid: 2.34 cm LV Stroke volume: 40.5 ml TAPSE: 1.71 cm TDI-S': 10.4 cm/s Doppler Measurements AV Peak Velocity: 1.23 m/s MV Peak E-Wave: 0.83 m/s AV Peak Gradient: 6.05 mmHg MV Peak A-Wave: 0.71 m/s AV Mean Gradient: 4 mmHg MV E/A Ratio: 1.18 LVOT Peak Velocity: 0.62 m/s MV P1/2t: 46 msec TR Gradient:11.29 mmHg PV Peak Velocity: 1 m/s PV Peak Gradient: 4 mmHg E' Septal Velocity: 0.05 m/s A' Septal Velocity: 0.09 m/s E' Lateral Velocity: 0.05 m/s A' Lateral Velocity: 0.07 m/s Findings Left Ventricle The left ventricle is moderately dilated . Mild concentric left ventricular hypertrophy. Diastolic assessment reveals Grade II pseudonormal diastolic function . Right Ventricle Normal right ventricle structure and function. Left Atrium The left atrium is moderately dilated. There is no evidence of patent foramen ovale or atrial septal defect by color Doppler. Right Atrium Normal right atrial size. IVC measures 1.85 cm with inspiratory collapse. Mitral Valve Mild thickening of the mitral valve leaflets. Mild mitral regurgitation. Aortic Valve Normal aortic valve structure and function. Tricuspid Valve Normal appearing tricuspid valve. Pulmonic Valve Normal pulmonic valve structure and function. Pericardial Effusion Trivial global pericardial effusion. Miscellaneous Visualized portions of the aortic root and ascending aorta appear normal in size. Pleural Effusion No evidence of pleural effusion. Signature dtt: Axel Frey dtd: 06/19/17 1006 Physician Self Edit
== END | disposition disaster alternative care site (69) ==
LOC: GCAR 09:49
DX: R06.02 Shortness of breath (principal); I34.0 Nonrheumatic mitral (valve) insufficiency; I51.7 Cardiomegaly